=== PATIENT | female | born 1995 | race Caucasian/White ===

== ENCOUNTER 2018-05-05 17:38 | Emergency (ER) | payer OTHER ==
[2018-05-05] MEDS: NORCO, ANEXSIA 5/325MG TABLET (HYDROcodone/ACETAMINOPHEN) PO (23:43)
== END 2018-05-05 23:45 | disposition home or self-care (01) ==
LOC: M ED 17:38
DX: S29.001A Unspecified injury of muscle and tendon of front wall of thorax, initial encounter (principal); R07.9 Chest pain, unspecified; W16.012A Fall into swimming pool striking water surface causing other injury, initial encounter; Y92.89 Other specified places as the place of occurrence of the external cause; R06.02 Shortness of breath
CPT/HCPCS: 71046

== ENCOUNTER 2018-10-28 09:48 | Emergency (ER) | payer OTHER ==
[~2018-10-28] VITALS: Ht 160 cm; Wt 104.5 kg
[~2018-10-28 09:48] MED LIST: NORC1TAB4 PO
[2018-10-28 10:58] LABS: BASO # 0.1 10^3/uL (0.0-0.2); BASO % 0.5 % (0.0-1.0); EOS # 0.1 10^3/uL (0.0-0.50); EOS % 1.1 % (0.0-3.0); HEMATOCRIT 39.9 % (36.0-47.0); HEMOGLOBIN 13.5 g/dl (12.0-15.5); LYMPH # 3.8 10^3/uL (1.5-6.5); LYMPH % 33.7 % (24.0-44.0); MEAN CORPUSCULAR HEMOGLOBIN 28.8 pg (27.0-33.0); MEAN CORPUSCULAR HGB CONC 33.8 g/dl (32.0-36.5); MEAN CORPUSCULAR VOLUME 85.1 fl (80.0-96.0); MONO # 0.6 10^3/uL (0.0-0.8); MONO % 5.2 % (0.0-5.0); NEUTROPHILS # 6.6 10^3/uL (1.8-7.7); NEUTROPHILS % 59.2 % (36.0-66.0); PLATELET COUNT, AUTOMATED 264 10^3/uL (150-450); RED BLOOD COUNT 4.69 10^6/uL (4.00-5.40); WHITE BLOOD COUNT 11.2 10^3/uL (4.0-10.0)
[2018-10-28] MEDS ORDERED: NS 1,000 ML IV ONE (11:00)
[2018-10-28] MEDS ORDERED: PROMETHAZINE INJ 25 MG/ML VIAL (J2550) IV ONE (11:00)
[2018-10-28 11:02] LABS: AMORPHOUS SEDIMENT SMALL (NEGATIVE); APPEARANCE, URINE HAZY (CLEAR); BACTERIA, URINE AUTO 1+ (NEGATIVE); BILIRUBIN, URINE AUTO NEGATIVE (NEGATIVE); BLOOD, URINE BLOOD NEGATIVE (NEGATIVE); COLOR, URINE AMBER (YELLOW); GLUCOSE, URINE (UA) AUTO NEGATIVE (NEGATIVE); KETONE, URINE AUTO NEGATIVE (NEGATIVE); LEUKOCYTE ESTERASE, URINE AUTO NEGATIVE (NEGATIVE); MUCUS, URINE MODERATE (NEGATIVE); NITRITE, URINE AUTO NEGATIVE (NEGATIVE); PROTEIN, URINE AUTO 1+ mg/dL (NEGATIVE); RBC, URINE AUTO 3 /HPF (0-3); SPECIFIC GRAVITY URINE AUTO 1.027 (1.002-1.035); SQUAMOUS EPITHELIAL CELL UR AU 5 /HPF (0-6); UROBILINOGEN, URINE AUTO 0.2 mg/dL (0.0-2.0); WBC, URINE AUTO 3 /HPF (0-3)
[2018-10-28 11:39] LABS: ALBUMIN 3.5 GM/DL (3.2-5.2); ALT/SGPT 25 U/L (12-78); BILIRUBIN,DIRECT 0.2 MG/DL (0.0-0.2); BILIRUBIN,TOTAL 0.7 MG/DL (0.2-1.0); BLOOD UREA NITROGEN 9 MG/DL (7-18); CALCIUM LEVEL 8.6 MG/DL (8.5-10.1); CARBON DIOXIDE LEVEL 22 MEQ/L (21-32); CHLORIDE LEVEL 103 MEQ/L (98-107); CREATININE FOR GFR 0.61 MG/DL (0.55-1.30); GLOMERULAR FILTRATION RATE > 60.0 (>60); GLUCOSE, FASTING 80 MG/DL (70-100); HCG, SERUM QUANTITATIVE 42816 MIU/ML; LIPASE 109 U/L (73-393); POTASSIUM SERUM 3.5 MEQ/L (3.5-5.1); SODIUM LEVEL 137 MEQ/L (136-145); TOTAL PROTEIN 7.9 GM/DL (6.4-8.2)
--- NOTE | 2018-10-28 12:55 | REP ---
Emergency first trimester obstetric sonography: History: Abdomen pain. Findings: Transabdominal and transvaginal scanning are performed. A single living intrauterine gestation is confirmed. The crown-rump length of the embryonic pole is 19 mm. This corresponds with a gestational age estimate of 8 weeks 3 days. heart rate is recorded at 171 beats per minute. No subchorionic hemorrhage is seen. There is a 2.0 x 1.8 x 1.6 cm hypoechoic cyst in the right ovary consistent with corpus luteum. Two uterine fibroids are identified. Anteriorly there is a 3.7 x 2.8 x 4.5 cm fibroid. On the left also anteriorly there is a 2.2 x 2.2 x 2.1 cm fibroid. Impression: Viable single intrauterine gestation at 8 weeks 3 days by crown-rump length. SIGRID by sonography June 02, 2019. There are two identifiable fibroids in the maternal uterus, the largest of which measures 4.5 cm in greatest diameter. No other complication is identified. Electronically Signed by Kb Uriostegui MD 10/28/2018 06:05 P
[2018-10-28] MEDS ORDERED: UNIS25TA3 PO (13:24)
[2018-10-28] MEDS ORDERED: PYRI25TA4 PO (13:24)
[2018-10-28 13:49] VITALS: BP 103/50
== END 2018-10-28 13:57 | disposition home or self-care (01) ==
LOC: M ED 09:48
DX: O99.89 Other specified diseases and conditions complicating pregnancy, childbirth and the puerperium (principal); R11.0 Nausea; D25.9 Leiomyoma of uterus, unspecified; Z3A.08 8 weeks gestation of pregnancy

== ENCOUNTER 2019-02-02 15:00 | Outpatient (CLI) | payer OTHER ==
[~2019-02-02] VITALS: Ht 160 cm; Wt 111.7 kg
[~2019-02-02 15:00] MED LIST changes: -ONDA4TAB6 PO; -PRENTAB9 PO
[2019-02-02 15:29] VITALS: BP 112/59
[2019-02-02] MEDS ORDERED: PRENTAB9 PO (15:46)
[2019-02-02] MEDS ORDERED: ONDA4TAB6 PO (15:46)
[2019-02-02 16:52] VITALS: BP 116/63
== END 2019-02-02 17:35 | disposition home or self-care (01) ==
LOC: M LDO 15:00
PROVIDERS: ATTEND Obstetrics & Gynecology
DX: O26.852 Spotting complicating pregnancy, second trimester (principal); O43.122 Velamentous insertion of umbilical cord, second trimester; Z3A.22 22 weeks gestation of pregnancy
CPT/HCPCS: 81002; 81025; 87086; 87661; G0378; G0463

== ENCOUNTER → 2019-02-02 | Outpatient (REF) | payer OTHER ==
[~2019-02-02] MED LIST changes: -NORC1TAB4 PO; +NORC1TAB7 PO; +ONDA4TAB6 PO; +PRENTAB9 PO; +PYRI25TA4 PO; +UNIS25TA3 PO
[2019-02-02 23:41] LABS: CHLAMYDIA DNA AMPLIFICATION NEGATIVE (NEGATIVE); GC DNA AMPLIFICATION NEGATIVE (NEGATIVE)
== END ==
LOC: M SFHCLERA 13:18
PROVIDERS: ATTEND Nurse Practitioner Family
DX: R10.2 Pelvic and perineal pain (principal)